=== PATIENT | male | born 1980 | race Hispanic/Latino ===

== ENCOUNTER 2018-05-24 18:16 | Emergency (ER) | payer OTHER | END 2018-05-24 19:20 | disposition home or self-care (01) | LOC: EDH 18:16 | DX: K42.9 Umbilical hernia without obstruction or gangrene (principal) | CPT/HCPCS: 99281 ==

== ENCOUNTER 2019-07-15 17:59 | Emergency (ER) | payer SELFPAY | END 2019-07-15 20:00 | disposition home or self-care (01) | LOC: EDH 17:59 | DX: L02.01 Cutaneous abscess of face (principal) ==

== ENCOUNTER 2023-12-14 11:30 | Emergency (ER) | payer BC ==
[~2023-12-14] VITALS: Ht 160 cm; Wt 68.0 kg
[2023-12-14] MEDS: MORPHINE 2 MG SYG IVP ONE (11:56)
[2023-12-14] MEDS: ONDANSETRON 4MG INJ IVP ONE (11:56)
[2023-12-14] MEDS: 0.9%NACL 1000ML 1,000 ML IV ONE (11:58)
[2023-12-14 12:00] LABS: BASOPHILS # (AUTO) 0.02 K/uL (0.00-0.20); BASOPHILS % (AUTO) 0.3 % (0.0-5.0); EOSINOPHILS # (AUTO) 0.01 K/uL (0.00-0.70); EOSINOPHILS % (AUTO) 0.1 % (0.0-8.0); HEMATOCRIT 44.8 % (42-54); IMMATURE GRANULOCYTE ABSOLUTE 0.01 K/uL (0-1); LYMPHOCYTES % (AUTO) 12.7 % (21.0-51.0); MEAN CORPUSCULAR HEMOGLOBIN 30.9 pg (27.0-33.0); MEAN CORPUSCULAR HGB CONC 34.6 g/dL (32.0-36.0); MEAN CORPUSCULAR VOLUME 89.4 fL (79-99); MONOCYTES # (AUTO) 0.3 K/uL (0.1-1.0); MONOCYTES % (AUTO) 4.4 % (3.0-13.0); NEUTROPHILS # (AUTO) 6.4 K/uL (1.8-7.7); NEUTROPHILS % (AUTO) 82.4 % (40.0-77.0); PLATELET COUNT (AUTO) 346 K/uL (130-400); RED BLOOD CELL COUNT(AUTO) 5.01 MIL/uL (4.50-6.20); RED CELL DISTRIBUTION WIDTH 13.6 % (11.0-15.5); WHITE BLOOD COUNT (AUTO) 7.7 K/uL (4.8-10.8)
[2023-12-14 12:12] LABS: POTASSIUM 3.3 mmol/L (3.5-5.1)
[2023-12-14 12:16] LABS: ALBUMIN 3.8 g/dL (3.5-5.0); BILIRUBIN,TOTAL 0.3 mg/dL (0.2-1.0); TOTAL PROTEIN, SERUM 7.3 g/dL (6.0-8.3)
[2023-12-14] MEDS ORDERED: IOHEXOL 350 MG/ML 100ML INFUS..BTL IV ONE (12:44)
[2023-12-14 13:16] LABS: APPEARANCE,URINE CLEAR (CLEAR); BILIRUBIN,URINE NEGATIVE (NEGATIVE); COLOR,URINE COLORLESS (YELLOW); GLUCOSE, URINE (UA) NEGATIVE (NEGATIVE); KETONES,URINE NEGATIVE (NEGATIVE); LEUKOCYTE ESTERASE ,URINE NEGATIVE Leu/uL (NEGATIVE); NITRATE,URINE NEGATIVE (NEGATIVE); OCCULT BLOOD,URINE NEGATIVE (NEGATIVE); PROTEIN,URINE NEGATIVE (NEGATIVE); UROBILINOGEN,URINE 0.2 mg/dL (0.2-1.0)
[2023-12-14 13:17] LABS: ADD UA MICROSCOPIC NO
[2023-12-14] MEDS: MORPHINE 4 MG SYG IVP ONE (13:28)
[2023-12-14] MEDS: MORPHINE 4 MG SYG ONE (13:28)
[2023-12-14 13:29] VITALS: BP 132/81; PULSE 71; RESP 18; O2SAT 98
[2023-12-14] MEDS: POTASSIUM BICARB/CIT AC 25 MEQ TABLET.EFF PO ONE (13:37)
== END 2023-12-14 13:57 | disposition home or self-care (01) ==
LOC: EDH 11:30
DX: K43.9 Ventral hernia without obstruction or gangrene (principal); E87.6 Hypokalemia
CPT/HCPCS: 99284; 74177; 96374; 96361; 96375; 80053; 83690; 85025; 81003; 36415; J2270 ×2; J7030; J2405; Q9967

== ENCOUNTER 2023-12-14 16:20 | Emergency (ER) | payer BC ==
[~2023-12-14] VITALS: Ht 167.6 cm; Wt 74.8 kg
[2023-12-14 16:31] VITALS: O2SAT 98
[2023-12-14 16:34] VITALS: BP 111/76; PULSE 67; RESP 18
== END 2023-12-14 16:51 | disposition home or self-care (01) ==
LOC: EDH 16:20
DX: K43.2 Incisional hernia without obstruction or gangrene (principal)
CPT/HCPCS: 99282